=== PATIENT | male | born 1985 | race Caucasian/White ===

== ENCOUNTER 2017-08-16 03:20 | Emergency (ER) | payer OTHER ==
[2017-08-16 03:23] VITALS: BP 145/93; PULSE 68; RESP 15; TEMP 98.5; O2SAT 98
[2017-08-16] MEDS ORDERED: PROPARACAINE HCL 0.5% OPHT SOLN 15 ML BTL EACH EYE ONE (03:45)
[2017-08-16] MEDS ORDERED: TOBRAMYCIN SULFATE 0.3% OPTH OINT 3.5 GM TUBE RIGHT EYE ONE (04:00)
[2017-08-16] MEDS ORDERED: ACETAMINOPHEN/HYDROcodone 325 MG/5 MG TAB PO ONE (04:00)
--- NOTE | 2017-08-16 04:01 | PD ---
HPI Chief Complaint: Eye Problems/Injury Time Seen by Provider: 03:39 Travel History International Travel<30 days: No Contact w/Intl Traveler<30days: No Traveled to known affect area: No History of Present Illness HPI 32-year-old white male presents to emergency Department with complaints of right eye pain. He states that earlier yesterday morning he was sitting up in bed watching TV when he felt something hasn't had gone into his right eye. He felt it was like a eyelash. He had rubbed his eye. Since then he has had pain in his right eye. Positive tearing, photophobia, and this was followed by worsening this evening which woke him up causing him to present to the ER. He does not wear glasses or contacts. No recent illness. Pain is mild. Up-to- date with immunizations. PFSH Past Medical History Medical History: Denies Significant Hx Tetanus Vaccination: < 5 Years ?: Not Past Surgical History Surgical History: No Previous Surgery Social History Alcohol Use: Yes Tobacco Use: No Substance Use: No Allergies-Medications (Allergen,Severity, Reaction): Coded Allergies: mold (Verified Allergy, Severe, 08/16/17) rabbit dander (Verified Allergy, Severe, 08/16/17) cat dander (Verified Allergy, Intermediate, 08/16/17) Review of Systems Except as stated in HPI: all other systems reviewed are Neg Eyes: Positive: Blurred Vision, Photophobia, Redness, Foreign Body Sensation, Pain, Tearing, Visual changes, No: Diploplia, Drainage Physical Exam Narrative GENERAL: Well-developed, well-nourished in no acute distress. Nontoxic appearing. HEAD: Normocephalic, atraumatic. EYES: Pupils equal round and reactive. Extraocular motions intact. No scleral icterus. No injection or drainage in the left eye. The right eye is injected. Alcaine is instilled in the right eye with resolution of his pain. The lids are flipped and no foreign bodies seen. Fluorescein stain reveals a small punctate uptake of dye at the 6:00 hour just outside the central vision. ENT: TMs clear without erythema. The external auditory canals clear. Nose: clear . Posterior pharynx is pink and moist. No tonsillar edema or exudate. Uvula midline. Airway patent. NECK: Trachea midline.Supple, nontender, moves head freely. No central bony tenderness or spasm. CARDIOVASCULAR: Regular rate and rhythm without murmurs, gallops, or rubs. RESPIRATORY: Clear to auscultation. Breath sounds equal bilaterally. No wheezes , rales, or rhonchi. GASTROINTESTINAL: Abdomen soft, non-tender, nondistended. No hepato-splenomegaly , or palpable masses. No guarding. EXTREMITIES: No clubbing, cyanosis, or edema. No joint tenderness, effusion, or edema noted. BACK: Nontender without deformity or crepitance. No flank tenderness. Data Data Last Documented VS Vital Signs Date Time Temp Pulse Resp B/P (MAP) Pulse Ox O2 Delivery O2 Flow Rate FiO2 08/16/17 03:23 98.5 68 15 145/93 (110) 98 Room Air Orders Orders Proparacaine 0.5% Opth Soln (Alcaine 0.5 (08/16/17 03:45) Tobramycin 0.3% Opth Oint (Tobrex 0.3% O (08/16/17 04:00) Acetamin-Hydrocod 325-5 Mg ([place] 5-325 (08/16/17 04:00) MDM Medical Decision Making Medical Screen Exam Complete: Yes Emergency Medical Condition: Yes Medical Record Reviewed: Yes Differential Diagnosis MDM: High Differential diagnoses: Acute conjunctivitis (bacterial, viral, allergic, traumatic), glaucoma, iritis, traumatic globe injury, foreign body, corneal abrasion, corneal ulcer, diabetic retinopathy, photokeratitis, herpes keratitis , CMV retinitis Narrative Course This is right corneal abrasion Patient is given 2 Lortab 5 mg by mouth and tobramycin ophthalmic ointment to the right eye. Diagnosis Primary Impression: Right corneal abrasion Qualified Codes: S05.01XA - Injury of conjunctiva and corneal abrasion without foreign body, right eye, initial encounter Patient Instructions: Narcotic given in the ED Additional Instructions: Rest. Wash eyelashes with baby shampoo 3 times daily. Warm compresses. Tylenol and Advil. One ribbon of ointment in the right eye 4 times daily. Followup with an eye doctor Friday. Return to the ER if any problems. Med/Other Pt SpecificInfo: Prescription(s) given Disposition: DISCHARGE HOME Condition: Stable Jovanny Figueroa Aug 16, 2017 04:01
== END 2017-08-16 05:00 | disposition home or self-care (01) ==
LOC: NEPD 03:20
DX: S05.01XA Injury of conjunctiva and corneal abrasion without foreign body, right eye, initial encounter (principal); W22.8XXA Striking against or struck by other objects, initial encounter
CPT/HCPCS: 99283